=== PATIENT | male | born 1950 | race African-American/Black ===

== ENCOUNTER 2020-04-20 10:02 | Inpatient (IN) | payer MEDICARE, MEDICAID ==
[~2020-04-20] VITALS: Ht 170.2 cm; Wt 80.7 kg
[2020-04-20] MEDS ORDERED: LORAZEPAM 2MG/ML CPJ IM STA (10:50)
[2020-04-20 11:00] LABS: EOSINOPHILS % 0.7 % (0.0-5.0); HEMATOCRIT. 38.1 % (42.0-52.0); HEMOGLOBIN. 12.7 g/dL (14.0-18.0); LYMPHOCYTES % 11.1 % (20.0-50.0); MEAN CORPUSCULAR HEMOGLOBIN 32.6 pg (28.0-32.0); MEAN CORPUSCULAR VOLUME 97.7 fL (80.0-94.0); MEAN PLATELET VOLUME 8.1 fl (7.4-10.4); MONOCYTES % 6.9 % (2.0-8.0); NEUTROPHILS % 80.3 % (40.0-76.0); PLATELET 277 x1000/uL (130-400); RED CELL DISTRIBUTION WIDTH 15.2 % (11.6-14.6)
[2020-04-20] MEDS ORDERED: LEVETIRACETAM 1000MG/100ML 100 ML IV ONE (11:00)
[2020-04-20 11:09] LABS: CHLORIDE 100 mEq/L (98-107)
[2020-04-20 11:11] LABS: ETHANOL BLOOD < 10 mg/dL
[2020-04-20] MEDS ORDERED: GUAIFENESIN 200MG/10ML SUGAR FREE UDC PO PRN (13:30)
[2020-04-20] MEDS ORDERED: ENOXAPARIN 40MG/0.4ML SYR SUBCUT SCH (13:30)
[2020-04-20] MEDS ORDERED: ONDANSETRON HCL 4MG/2ML INJ IV PRN (13:30)
[2020-04-20] MEDS ORDERED: LORAZEPAM 2MG/ML CPJ IV PRN (13:30)
[2020-04-20] MEDS ORDERED: ACETAMINOPHEN 325MG TABLET PO PRN (13:30)
[2020-04-20] MEDS ORDERED: HYDROCODONE/ACETAMINOPHEN 5/325MG TABLET PO PRN (13:30)
[2020-04-20] MEDS ORDERED: DOCUSATE SODIUM 100MG CAPSULE PO PRN (13:30)
[2020-04-20] MEDS ORDERED: CLONIDINE 0.1MG TABLET PO PRN (13:30)
[2020-04-20] MEDS: AMLODIPINE 10MG TABLET PO SCH (14:00)
[2020-04-20] MEDS: ENOXAPARIN 30MG/0.3ML SYR SUBCUT SCH (14:00)
[2020-04-20 14:35] LABS: CLARITY URINE CLEAR (CLEAR); COLOR URINE YELLOW (YELLOW); KETONES URINE NEGATIVE (NEGATIVE); LEUKOCYTE ESTERASE URINE 1+ (NEGATIVE); NITRITE URINE NEGATIVE (NEGATIVE); OCCULT BLOOD URINE 1+ (NEGATIVE); PH URINE >=9.0 (4.5-8.0); PROTEIN URINE 3+ (NEGATIVE); SPECIFIC GRAVITY URINE 1.011 (1.005-1.030); UROBILINOGEN URINE 0.2 E.U./dL (0.2-1.0)
[2020-04-20 15:00] VITALS: BP 139/85
[2020-04-20 15:03] LABS: OPIATES URINE SCREEN NEGATIVE (NEGATIVE)
[2020-04-20 15:04] LABS: *AMPHETAMINES SCREEN URINE NEGATIVE (NEGATIVE); *BARBITURATES SCREEN URINE NEGATIVE (NEGATIVE); *BENZODIAZEPINES SCREEN URINE NEGATIVE (NEGATIVE); *COCAINE SCREEN URINE PRESUMTIVE POSITIVE (NEGATIVE); CANNABINOID URINE SCREEN NEGATIVE (NEGATIVE); METHADONE URINE SCREEN NEGATIVE (NEGATIVE); PHENCYCLIDINE URINE SCREEN NEGATIVE (NEGATIVE)
[2020-04-20 20:09] VITALS: BP 169/81
[2020-04-20] MEDS: LEVETIRACETAM 500MG PREMIX 100 ML IV SCH (21:22)
[2020-04-20] MEDS: DIPHENHYDRAMINE 50MG/ML VIAL IV PRN (22:15)
[2020-04-20] MEDS ORDERED: LEVETIRACETAM 500 MG in SODIUM CHLORIDE 0.9% 100 ML IV SCH (23:00)
[2020-04-20] MEDS ORDERED: HALOPERIDOL LACTATE 5MG/ML VIAL IM PRN (23:15)
[2020-04-21 00:32] VITALS: BP 178/93
[2020-04-21] MEDS: DIPHENHYDRAMINE 50MG/ML VIAL IV PRN (03:48)
[2020-04-21 04:00] VITALS: BP 186/85
[2020-04-21 06:49] LABS: CHLORIDE 104 mEq/L (98-107)
[2020-04-21 07:04] LABS: BASOPHILS % 1.5 % (0.0-2.0); EOSINOPHILS % 1.5 % (0.0-5.0); HEMATOCRIT. 32.2 % (42.0-52.0); LYMPHOCYTES % 22.8 % (20.0-50.0); MEAN CORPUSCULAR HEMOGLOBIN 32.7 pg (28.0-32.0); MEAN CORPUSCULAR VOLUME 95.7 fL (80.0-94.0); MEAN PLATELET VOLUME 8.4 fl (7.4-10.4); MONOCYTES % 13.7 % (2.0-8.0); NEUTROPHILS % 60.5 % (40.0-76.0); PLATELET 243 x1000/uL (130-400); RED BLOOD CELL COUNT 3.37 mill/uL (4.7-6.1)
[2020-04-21] MEDS: LEVETIRACETAM 500MG PREMIX 100 ML IV SCH (08:15)
[2020-04-21] MEDS: AMLODIPINE 10MG TABLET PO SCH (08:41)
[2020-04-21] MEDS ORDERED: KEPP500 MT (11:57)
[2020-04-21 12:00] VITALS: BP 126/61
[2020-04-21] MEDS: ENOXAPARIN 30MG/0.3ML SYR SUBCUT SCH (13:03)
[2020-04-21 15:09] VITALS: BP 123/68
[2020-04-21 16:00] VITALS: BP 122/70
== END 2020-04-21 17:40 | disposition home health service (06) | DRG 100 ==
LOC: ER 10:13 → 6WST 13:06 → EDBEDREQTM 13:09 → EDBEDREQ 13:09 → ENRESERV 13:41 → 6WST 04-21 05:30
PROVIDERS: ADMIT Hospitalist; ATTEND Hospitalist
PROC: 5A1D70Z Performance of Urinary Filtration, Intermittent, Less than 6 Hours Per Day (ICD-10-PCS; principal; 2020-04-20)
DX: G40.409 Other generalized epilepsy and epileptic syndromes, not intractable, without status epilepticus (principal); I50.33 Acute on chronic diastolic (congestive) heart failure; N18.6 End stage renal disease; I13.2 Hypertensive heart and chronic kidney disease with heart failure and with stage 5 chronic kidney disease, or end stage renal disease; F14.10 Cocaine abuse, uncomplicated; Z99.2 Dependence on renal dialysis; Z79.899 Other long term (current) drug therapy
CPT/HCPCS: 36415; 71045; 80053; 80305; 80320; 81003; 85025; 87077; 87186; 93005; 93970; 97162; 99285; J1200; J1630; J1650; J1953; J2060; G0480

== ENCOUNTER 2020-06-23 07:20 | Emergency (ER) | payer MEDICARE, MEDICAID ==
[~2020-06-23] VITALS: Ht 177.8 cm; Wt 90.0 kg
[~2020-06-23 07:20] MED LIST: KEPP500 MT
[2020-06-23] MEDS ORDERED: LEVETIRACETAM 1000MG PREMIX 100 ML IV ONE (07:45)
[2020-06-23 08:18] LABS: BASOPHILS % 0.7 % (0.0-2.0); CHLORIDE 96 mEq/L (98-107); EOSINOPHILS % 1.4 % (0.0-5.0); HEMATOCRIT. 38.9 % (42.0-52.0); HEMOGLOBIN. 12.6 g/dL (14.0-18.0); LYMPHOCYTES % 34.9 % (20.0-50.0); MEAN CORPUSCULAR HEMOGLOBIN 31.9 pg (28.0-32.0); MEAN CORPUSCULAR VOLUME 98.2 fL (80.0-94.0); MEAN PLATELET VOLUME 8.6 fl (7.4-10.4); MONOCYTES % 9.5 % (2.0-8.0); NEUTROPHILS % 53.5 % (40.0-76.0); PLATELET 286 x1000/uL (130-400); RED BLOOD CELL COUNT 3.96 mill/uL (4.7-6.1); RED CELL DISTRIBUTION WIDTH 15.6 % (11.6-14.6)
[2020-06-23 08:23] LABS: ETHANOL BLOOD < 10 mg/dL
[2020-06-23 10:00] VITALS: BP 142/72
== END 2020-06-23 10:53 | disposition home or self-care (01) ==
LOC: ER 07:20
DX: R56.9 Unspecified convulsions (principal); N18.6 End stage renal disease; Z99.2 Dependence on renal dialysis
CPT/HCPCS: 36415; 80053; 80320; 82962; 85025; 93005; 96365; 99284; J1953; G0480

== ENCOUNTER 2020-10-07 19:31 | Inpatient (IN) | payer MEDICARE, MEDICAID ==
[~2020-10-07] VITALS: Ht 172.7 cm; Wt 72.6 kg
[2020-10-07] MEDS ORDERED: LORAZEPAM 2MG/ML CPJ IM ONE (20:45)
[2020-10-07 22:04] LABS: HEMATOCRIT. 36.8 % (42.0-52.0); HEMOGLOBIN. 12.8 g/dL (14.0-18.0); MEAN CORPUSCULAR HEMOGLOBIN 31.5 pg (28.0-32.0); MEAN PLATELET VOLUME 8.2 fl (7.4-10.4); PLATELET 214 x1000/uL (130-400); RED BLOOD CELL COUNT 4.05 mill/uL (4.7-6.1)
[2020-10-07 22:14] LABS: CHLORIDE 96 mEq/L (98-107)
[2020-10-07 22:20] LABS: ETHANOL BLOOD < 10 mg/dL
[2020-10-07 22:33] LABS: CLARITY URINE CLOUDY (CLEAR); COLOR URINE YELLOW (YELLOW); KETONES URINE TRACE (NEGATIVE); LEUKOCYTE ESTERASE URINE 1+ (NEGATIVE); NITRITE URINE NEGATIVE (NEGATIVE); OCCULT BLOOD URINE 3+ (NEGATIVE); PH URINE 6.5 (4.5-8.0); PROTEIN URINE 3+ (NEGATIVE); SPECIFIC GRAVITY URINE 1.018 (1.005-1.030); UROBILINOGEN URINE 0.2 E.U./dL (0.2-1.0)
[2020-10-07 22:44] LABS: PLATELET ESTIMATE NORMAL
[2020-10-07 22:44] LABS: *AMPHETAMINES SCREEN URINE NEGATIVE (NEGATIVE); *BARBITURATES SCREEN URINE NEGATIVE (NEGATIVE); *BENZODIAZEPINES SCREEN URINE NEGATIVE (NEGATIVE); *COCAINE SCREEN URINE PRESUMTIVE POSITIVE (NEGATIVE); METHADONE URINE SCREEN NEGATIVE (NEGATIVE); OPIATES URINE SCREEN NEGATIVE (NEGATIVE)
[2020-10-07 22:45] LABS: CANNABINOID URINE SCREEN NEGATIVE (NEGATIVE); PHENCYCLIDINE URINE SCREEN NEGATIVE (NEGATIVE)
[2020-10-07] MEDS ORDERED: LEVETIRACETAM 500MG PREMIX 100 ML IV ONE (23:15)
[2020-10-07] MEDS ORDERED: SODIUM CHLORIDE 0.9% 500 ML IV ONE (23:15)
[2020-10-08] MEDS ORDERED: DEXTROSE 50% WATER 50ML SYRINGE IV ONE
[2020-10-08] MEDS ORDERED: MAGNESIUM/ALUMINUM HYDROXIDE/SIMETHICONE 30ML UDC PO PRN (06:30)
[2020-10-08] MEDS ORDERED: GUAIFENESIN 200MG/10ML SUGAR FREE UDC PO PRN (06:30)
[2020-10-08] MEDS ORDERED: IPRATROPIUM/ALBUTEROL 0.5-3(2.5)MG/3ML NEB HHN PRN (06:30)
[2020-10-08] MEDS ORDERED: DOCUSATE SODIUM 100MG CAPSULE PO PRN (06:30)
[2020-10-08] MEDS ORDERED: ENOXAPARIN 40MG/0.4ML SYR SUBCUT SCH (06:30)
[2020-10-08] MEDS ORDERED: LORAZEPAM 2MG/ML CPJ IV PRN (06:30)
[2020-10-08] MEDS ORDERED: DIPHENHYDRAMINE 50MG/ML VIAL IV PRN (06:30)
[2020-10-08] MEDS ORDERED: ONDANSETRON HCL 4MG/2ML INJ IV PRN (06:30)
[2020-10-08] MEDS: HYDRALAZINE 20MG/ML VIAL IV PRN ×2 (07:00→14:14)
[2020-10-08] MEDS ORDERED: BENA1TAB18 MT (10:13)
[2020-10-08] MEDS ORDERED: AMLO5TAB88 MT (10:13)
[2020-10-08] MEDS ORDERED: METO-385 MT (10:13)
[2020-10-08 10:19] VITALS: BP 120/77
[2020-10-08] MEDS: ENOXAPARIN 30MG/0.3ML SYR SUBCUT SCH (10:59)
[2020-10-08] MEDS: LEVETIRACETAM 500MG TABLET PO SCH ×2 (10:59→21:14)
[2020-10-08 12:00] VITALS: BP 170/74
[2020-10-08] MEDS: SODIUM CHLORIDE 0.9% INJ 3ML FLUSH IVF SCH ×2 (14:14→22:00)
[2020-10-08 16:00] VITALS: BP 107/65
[2020-10-08 18:49] LABS: CREATINE KINASE MB FRACTION 7.6 ng/mL (0.5-3.6)
[2020-10-08 20:00] VITALS: BP 140/69
[2020-10-08] MEDS: ACETAMINOPHEN 325MG TABLET PO PRN (21:15)
[2020-10-08 23:53] LABS: CREATINE KINASE MB FRACTION 5.5 ng/mL (0.5-3.6)
[2020-10-09 04:00] VITALS: BP 141/59
[2020-10-09] MEDS: SODIUM CHLORIDE 0.9% INJ 3ML FLUSH IVF SCH ×3 (05:29→20:46)
[2020-10-09 06:08] LABS: BASOPHILS % 0.5 % (0.0-2.0); EOSINOPHILS % 1.7 % (0.0-5.0); HEMATOCRIT. 30.9 % (42.0-52.0); HEMOGLOBIN. 10.6 g/dL (14.0-18.0); LYMPHOCYTES % 20.7 % (20.0-50.0); MEAN CORPUSCULAR HEMOGLOBIN 31.4 pg (28.0-32.0); MEAN CORPUSCULAR VOLUME 92.1 fL (80.0-94.0); MEAN PLATELET VOLUME 8.2 fl (7.4-10.4); MONOCYTES % 9.3 % (2.0-8.0); NEUTROPHILS % 67.8 % (40.0-76.0); PLATELET 203 x1000/uL (130-400); RED BLOOD CELL COUNT 3.36 mill/uL (4.7-6.1); RED CELL DISTRIBUTION WIDTH 15.5 % (11.6-14.6)
[2020-10-09 06:25] LABS: CHLORIDE 102 mEq/L (98-107)
[2020-10-09 08:00] VITALS: BP 173/85
[2020-10-09] MEDS ORDERED: POTASSIUM CHLORIDE 20MEQ TABLET SR PO SCH (08:15)
[2020-10-09] MEDS: ENOXAPARIN 30MG/0.3ML SYR SUBCUT SCH (10:36)
[2020-10-09] MEDS: LEVETIRACETAM 500MG TABLET PO SCH ×2 (10:37→20:46)
[2020-10-09 12:04] VITALS: BP 141/66
[2020-10-09 16:00] VITALS: BP 160/81
[2020-10-09 20:00] VITALS: BP 141/75
[2020-10-09] MEDS: ACETAMINOPHEN 325MG TABLET PO PRN (20:46)
[2020-10-10] VITALS: BP 186/70
[2020-10-10] MEDS: CLONIDINE 0.1MG TABLET PO PRN ×2 (01:42→08:36)
[2020-10-10 04:00] VITALS: BP 191/78
[2020-10-10] MEDS: SODIUM CHLORIDE 0.9% INJ 3ML FLUSH IVF SCH ×3 (06:12→21:31)
[2020-10-10 08:00] VITALS: BP 193/106
[2020-10-10] MEDS: ENOXAPARIN 30MG/0.3ML SYR SUBCUT SCH (08:35)
[2020-10-10] MEDS: LEVETIRACETAM 500MG TABLET PO SCH ×2 (08:35→21:31)
[2020-10-10] MEDS: LORAZEPAM 2MG/ML CPJ IV PRN ×2 (09:40→15:54)
[2020-10-10 12:00] VITALS: BP 135/69
[2020-10-10 16:00] VITALS: BP 140/62
[2020-10-10 20:00] VITALS: BP 138/64
[2020-10-11] VITALS (7 sets, daily range): BP systolic 113–168; BP diastolic 59–85
[2020-10-11] MEDS: CLONIDINE 0.1MG TABLET PO PRN (06:01)
[2020-10-11] MEDS: SODIUM CHLORIDE 0.9% INJ 3ML FLUSH IVF SCH ×3 (06:01→21:38)
[2020-10-11] MEDS: LEVETIRACETAM 500MG TABLET PO SCH ×2 (09:52→21:38)
[2020-10-11] MEDS: ENOXAPARIN 30MG/0.3ML SYR SUBCUT SCH (09:53)
[2020-10-12] VITALS: BP 145/75
[2020-10-12 04:00] VITALS: BP 171/76
[2020-10-12] MEDS: SODIUM CHLORIDE 0.9% INJ 3ML FLUSH IVF SCH ×2 (05:38→14:00)
[2020-10-12 08:00] VITALS: BP 159/69
[2020-10-12] MEDS: LEVETIRACETAM 500MG TABLET PO SCH (08:40)
[2020-10-12] MEDS: ENOXAPARIN 30MG/0.3ML SYR SUBCUT SCH (08:40)
[2020-10-12 08:54] LABS: BASOPHILS % 1.4 % (0.0-2.0); EOSINOPHILS % 2.3 % (0.0-5.0); HEMATOCRIT. 34.3 % (42.0-52.0); HEMOGLOBIN. 11.6 g/dL (14.0-18.0); LYMPHOCYTES % 37.7 % (20.0-50.0); MEAN CORPUSCULAR VOLUME 92.2 fL (80.0-94.0); MEAN PLATELET VOLUME 7.9 fl (7.4-10.4); MONOCYTES % 10.4 % (2.0-8.0); NEUTROPHILS % 48.2 % (40.0-76.0); PLATELET 233 x1000/uL (130-400); RED BLOOD CELL COUNT 3.72 mill/uL (4.7-6.1); RED CELL DISTRIBUTION WIDTH 15.3 % (11.6-14.6)
[2020-10-12 12:00] VITALS: BP 147/62
[2020-10-12 13:56] VITALS: BP 147/62
== END 2020-10-12 17:36 | disposition home or self-care (01) | DRG 100 ==
LOC: ER 19:31 → 7WST 10-08 01:58 → ENRESERV 10-08 08:28 → 6WST 10-09 00:58
PROVIDERS: ADMIT Internal Medicine; ATTEND Internal Medicine
PROC: 5A1D70Z Performance of Urinary Filtration, Intermittent, Less than 6 Hours Per Day (ICD-10-PCS; 2020-10-08)
PROC: 4A10X4Z Monitoring of Central Nervous Electrical Activity, External Approach (ICD-10-PCS; principal; 2020-10-11)
PROC: 5A1D70Z Performance of Urinary Filtration, Intermittent, Less than 6 Hours Per Day (ICD-10-PCS; 2020-10-11)
DX: G40.909 Epilepsy, unspecified, not intractable, without status epilepticus (principal); N18.6 End stage renal disease; E46 Unspecified protein-calorie malnutrition; E87.1 Hypo-osmolality and hyponatremia; I12.0 Hypertensive chronic kidney disease with stage 5 chronic kidney disease or end stage renal disease; N39.0 Urinary tract infection, site not specified; D63.8 Anemia in other chronic diseases classified elsewhere; E87.6 Hypokalemia; F10.10 Alcohol abuse, uncomplicated; F14.10 Cocaine abuse, uncomplicated; F17.210 Nicotine dependence, cigarettes, uncomplicated; Z20.822 Contact with and (suspected) exposure to COVID-19; T42.6X6A Underdosing of other antiepileptic and sedative-hypnotic drugs, initial encounter; Y92.89 Other specified places as the place of occurrence of the external cause; Z99.2 Dependence on renal dialysis; Z68.24 Body mass index [BMI] 24.0-24.9, adult
CPT/HCPCS: 36415; 80048; 80053; 80305; 80320; 81003; 82550; 82553; 82962; 84443; 84484; 85025; 87077; 87186; 93005; 95816; 99285; C1893; J0360; J1650; J1953; J2060; J7040; U0003; G0480

== ENCOUNTER 2020-11-12 20:09 | Inpatient (IN) | payer MEDICARE, MEDICAID ==
[~2020-11-12] VITALS: Ht 180.3 cm; Wt 83.7 kg
[~2020-11-12 20:09] MED LIST changes: +AMLO5TAB88 MT; +BENA1TAB18 MT; +METO-385 MT
[2020-11-12] MEDS ORDERED: LEVETIRACETAM 500MG PREMIX 100 ML IV ONE (21:00)
[2020-11-12] MEDS ORDERED: LORAZEPAM 2MG/ML CPJ IV ONE (21:00)
[2020-11-12 22:20] LABS: HEMATOCRIT. 32.4 % (42.0-52.0); HEMOGLOBIN. 10.8 g/dL (14.0-18.0); MEAN CORPUSCULAR HEMOGLOBIN 31.7 pg (28.0-32.0); MEAN CORPUSCULAR VOLUME 94.8 fL (80.0-94.0); MEAN PLATELET VOLUME 8.7 fl (7.4-10.4); PLATELET 245 x1000/uL (130-400); RED BLOOD CELL COUNT 3.41 mill/uL (4.7-6.1); RED CELL DISTRIBUTION WIDTH 15.4 % (11.6-14.6)
[2020-11-12 22:29] LABS: CHLORIDE 102 mEq/L (98-107)
[2020-11-12 22:33] LABS: ETHANOL BLOOD < 10 mg/dL
[2020-11-12] MEDS ORDERED: DEXT 5%/0.9% NACL 1,000 ML IV ONE (22:45)
[2020-11-12 22:46] LABS: PLATELET ESTIMATE NORMAL
[2020-11-13] VITALS (13 sets, daily range): BP systolic 109–154; BP diastolic 59–84
[2020-11-13] MEDS ORDERED: LORAZEPAM 2MG/ML CPJ IV PRN (00:30)
[2020-11-13] MEDS ORDERED: DIPHENHYDRAMINE 50MG/ML VIAL IV PRN (00:30)
[2020-11-13] MEDS ORDERED: ACETAMINOPHEN 325MG TABLET PO PRN ×2 (00:30)
[2020-11-13] MEDS ORDERED: CLONIDINE 0.1MG TABLET PO PRN (00:30)
[2020-11-13] MEDS ORDERED: LEVETIRACETAM 500 MG in SODIUM CHLORIDE 0.9% 100 ML IV SCH (00:30)
[2020-11-13] MEDS ORDERED: ONDANSETRON HCL 4MG/2ML INJ IV PRN (00:30)
[2020-11-13] MEDS ORDERED: ZOLPIDEM TARTRATE 5MG TABLET PO PRN (00:30)
[2020-11-13] MEDS: SODIUM CHLORIDE 0.9% INJ 3ML FLUSH IVF SCH ×3 (06:17→21:19)
[2020-11-13] MEDS: LEVETIRACETAM 500MG PREMIX 100 ML IV SCH ×2 (09:30→21:47)
[2020-11-14] VITALS (9 sets, daily range): BP systolic 104–163; BP diastolic 52–79
[2020-11-14] MEDS: SODIUM CHLORIDE 0.9% INJ 3ML FLUSH IVF SCH ×2 (05:12→13:27)
[2020-11-14 06:32] LABS: BASOPHILS % 1.4 % (0.0-2.0); EOSINOPHILS % 5.9 % (0.0-5.0); HEMOGLOBIN. 9.8 g/dL (14.0-18.0); MEAN CORPUSCULAR HEMOGLOBIN 30.4 pg (28.0-32.0); MEAN CORPUSCULAR VOLUME 92.7 fL (80.0-94.0); MEAN PLATELET VOLUME 8.6 fl (7.4-10.4); MONOCYTES % 10.7 % (2.0-8.0); PLATELET 212 x1000/uL (130-400); RED BLOOD CELL COUNT 3.23 mill/uL (4.7-6.1); RED CELL DISTRIBUTION WIDTH 15.8 % (11.6-14.6)
[2020-11-14] MEDS: LEVETIRACETAM 500MG PREMIX 100 ML IV SCH (08:44)
== END 2020-11-14 13:43 | disposition home or self-care (01) | DRG 100 ==
LOC: ER 20:09 → 3WST 22:52 → ENRESERV 23:14
PROVIDERS: ADMIT Internal Medicine; ATTEND Internal Medicine
DX: G40.409 Other generalized epilepsy and epileptic syndromes, not intractable, without status epilepticus (principal); N18.6 End stage renal disease; I12.0 Hypertensive chronic kidney disease with stage 5 chronic kidney disease or end stage renal disease; D63.1 Anemia in chronic kidney disease; F14.90 Cocaine use, unspecified, uncomplicated; E11.22 Type 2 diabetes mellitus with diabetic chronic kidney disease; T42.6X6A Underdosing of other antiepileptic and sedative-hypnotic drugs, initial encounter; Y92.89 Other specified places as the place of occurrence of the external cause; Z82.49 Family history of ischemic heart disease and other diseases of the circulatory system; Z99.2 Dependence on renal dialysis; Z71.51 Drug abuse counseling and surveillance of drug abuser; Z72.89 Other problems related to lifestyle; Z71.41 Alcohol abuse counseling and surveillance of alcoholic; Z91.19 Patient's noncompliance with other medical treatment and regimen
CPT/HCPCS: 36415; 71045; 80048; 80053; 80320; 82962; 85025; 93005; 99285; J1953; J2060; J7042; G0480

== ENCOUNTER 2022-05-12 08:30 | Inpatient (IN) | payer MEDICARE, MEDICAID ==
[~2022-05-12] VITALS: Ht 170.2 cm; Wt 72.1 kg
[2022-05-12 09:09] LABS: BASOPHILS % 1.4 % (0.0-2.0); EOSINOPHILS % 3.4 % (0.0-5.0); HEMATOCRIT. 36.5 % (42.0-52.0); HEMOGLOBIN. 12.2 g/dL (14.0-18.0); LYMPHOCYTES % 32.8 % (20.0-50.0); MEAN CORPUSCULAR HEMOGLOBIN 32.7 pg (28.0-32.0); MEAN CORPUSCULAR VOLUME 97.5 fL (80.0-94.0); MEAN PLATELET VOLUME 8.8 fl (7.4-10.4); MONOCYTES % 13.7 % (2.0-8.0); NEUTROPHILS % 48.7 % (40.0-76.0); PLATELET 192 x1000/uL (130-400); RED BLOOD CELL COUNT 3.74 mill/uL (4.7-6.1); RED CELL DISTRIBUTION WIDTH 15.6 % (11.6-14.6)
[2022-05-12 09:15] LABS: CHLORIDE 97 mEq/L (98-107)
[2022-05-12] MEDS ORDERED: ONDANSETRON HCL 4MG/2ML INJ IV STA (09:23)
[2022-05-12] MEDS ORDERED: MORPHINE SULFATE 4 MG/ML CPJ (NOT FOR IM USE) IV STA (09:23)
[2022-05-12] MEDS ORDERED: ASPIRIN 81MG TABLET PO ONE (11:15)
[2022-05-12 16:30] VITALS: BP 186/81
[2022-05-12] MEDS ORDERED: BROM3DRO EACHEYE (17:13)
[2022-05-12] MEDS ORDERED: ASPI-986 PO (17:16)
[2022-05-12] MEDS ORDERED: PIOG45TA64 PO (17:16)
[2022-05-12] MEDS ORDERED: HYDRALAZINE 20MG/ML VIAL IV PRN (19:15)
[2022-05-12] MEDS ORDERED: MAGNESIUM/ALUMINUM HYDROXIDE/SIMETHICONE 30ML UDC PO PRN (19:15)
[2022-05-12] MEDS ORDERED: ACETAMINOPHEN 325MG TABLET PO PRN ×2 (19:15)
[2022-05-12] MEDS ORDERED: ONDANSETRON HCL 4MG/2ML INJ IV PRN (19:15)
[2022-05-12] MEDS ORDERED: DIPHENHYDRAMINE 50MG/ML VIAL IV PRN (19:15)
[2022-05-12] MEDS ORDERED: LORAZEPAM 2MG/ML CPJ IV PRN (19:15)
[2022-05-12] MEDS ORDERED: ZOLPIDEM TARTRATE 5MG TABLET PO PRN (19:15)
[2022-05-12 19:52] VITALS: BP 189/78
[2022-05-12] MEDS: LEVETIRACETAM 500MG TABLET PO SCH (20:07)
[2022-05-12] MEDS: AMLODIPINE 5MG TABLET PO SCH (20:07)
[2022-05-12] MEDS: FAMOTIDINE 20MG TABLET PO SCH (20:07)
[2022-05-12 21:26] VITALS: BP_SYST 155; BP_DIAS 57; BP_DIAS 87
[2022-05-12] MEDS: HYDRALAZINE HCL 50MG TABLET PO SCH (21:28)
[2022-05-12] MEDS: SODIUM CHLORIDE 0.9% INJ 3ML FLUSH IVF SCH (22:00)
[2022-05-13] VITALS: BP 140/58
[2022-05-13 03:14] VITALS: BP 159/71
[2022-05-13] MEDS: HYDRALAZINE HCL 50MG TABLET PO SCH ×3 (05:30→21:03)
[2022-05-13] MEDS: SODIUM CHLORIDE 0.9% INJ 3ML FLUSH IVF SCH ×3 (06:00→21:07)
[2022-05-13 08:10] VITALS: BP 136/67
[2022-05-13] MEDS: LEVETIRACETAM 500MG TABLET PO SCH ×2 (08:21→21:04)
[2022-05-13] MEDS: AMLODIPINE 5MG TABLET PO SCH ×2 (08:22→21:04)
[2022-05-13 11:35] VITALS: BP 128/61
[2022-05-13 15:51] VITALS: BP 109/70
[2022-05-13 20:00] VITALS: BP 160/70
[2022-05-13] MEDS: FAMOTIDINE 20MG TABLET PO SCH (21:04)
[2022-05-13] MEDS: ATORVASTATIN CALCIUM 20MG TABLET PO SCH (21:04)
[2022-05-14] VITALS (7 sets, daily range): BP systolic 81–179; BP diastolic 50–80
[2022-05-14] MEDS: HYDRALAZINE HCL 50MG TABLET PO SCH ×3 (05:34→21:43)
[2022-05-14] MEDS: SODIUM CHLORIDE 0.9% INJ 3ML FLUSH IVF SCH ×3 (05:35→20:49)
[2022-05-14] MEDS: LEVETIRACETAM 500MG TABLET PO SCH ×2 (08:45→20:48)
[2022-05-14] MEDS: AMLODIPINE 5MG TABLET PO SCH ×2 (08:45→20:49)
[2022-05-14] MEDS ORDERED: REGADENOSON 0.4 MG/5 ML IV NR (10:00)
[2022-05-14] MEDS: CLONIDINE 0.2MG TABLET PO SCH ×2 (13:07→21:43)
[2022-05-14] MEDS ORDERED: PNEUMOCOCCAL 23-VAL P-SAC VAC 0.5 ML IM ONE (14:00)
[2022-05-14] MEDS: FAMOTIDINE 20MG TABLET PO SCH (20:48)
[2022-05-14] MEDS: ATORVASTATIN CALCIUM 20MG TABLET PO SCH (20:48)
[2022-05-15] VITALS: BP 110/55
[2022-05-15 04:00] VITALS: BP 123/67
[2022-05-15] MEDS: CLONIDINE 0.2MG TABLET PO SCH ×2 (05:23→14:00)
[2022-05-15] MEDS: HYDRALAZINE HCL 50MG TABLET PO SCH ×2 (05:23→14:52)
[2022-05-15] MEDS: SODIUM CHLORIDE 0.9% INJ 3ML FLUSH IVF SCH ×2 (05:49→14:52)
[2022-05-15 08:00] VITALS: BP 126/65
[2022-05-15] MEDS ORDERED: REGADENOSON 0.4 MG/5 ML IV ONE (08:53)
[2022-05-15 12:00] VITALS: BP 134/64
[2022-05-15] MEDS: LEVETIRACETAM 500MG TABLET PO SCH (12:05)
[2022-05-15] MEDS: AMLODIPINE 5MG TABLET PO SCH (12:05)
[2022-05-16 08:08] LABS: HBSAG SCREEN Negative (Negative)
== END 2022-05-15 15:40 | disposition left against medical advice (07) | DRG 205 ==
LOC: ER 08:54 → 8WST 11:14
PROVIDERS: ADMIT Internal Medicine; ATTEND Internal Medicine
PROC: 5A1D70Z Performance of Urinary Filtration, Intermittent, Less than 6 Hours Per Day (ICD-10-PCS; principal; 2022-05-13)
PROC: 4A02XM4 Measurement of Cardiac Total Activity, External Approach (ICD-10-PCS; 2022-05-15)
PROC: 3E033HZ Introduction of Radioactive Substance into Peripheral Vein, Percutaneous Approach (ICD-10-PCS; 2022-05-15)
DX: M94.0 Chondrocostal junction syndrome [Tietze] (principal); N18.6 End stage renal disease; I12.0 Hypertensive chronic kidney disease with stage 5 chronic kidney disease or end stage renal disease; E87.6 Hypokalemia; E11.22 Type 2 diabetes mellitus with diabetic chronic kidney disease; E78.5 Hyperlipidemia, unspecified; F17.200 Nicotine dependence, unspecified, uncomplicated; Z20.822 Contact with and (suspected) exposure to COVID-19; G40.909 Epilepsy, unspecified, not intractable, without status epilepticus; Z99.2 Dependence on renal dialysis; Z53.29 Procedure and treatment not carried out because of patient's decision for other reasons; Z82.49 Family history of ischemic heart disease and other diseases of the circulatory system; Z98.890 Other specified postprocedural states
CPT/HCPCS: 36415; 71045; 78452; 80053; 83880; 84484; 85025; 87340; 87426; 90732; 93005; 93017; 93306; 93970; 99285; A9500; A9537; J2270; J2405; J2785

== ENCOUNTER 2022-08-21 15:49 | Inpatient (IN) | payer MEDICARE, MEDICAID ==
[~2022-08-21] VITALS: Ht 182.9 cm; Wt 78.9 kg
[~2022-08-21 15:49] MED LIST changes: +ASPI-986 PO; +BROM3DRO EACHEYE; +PIOG45TA64 PO
[2022-08-21] MEDS ORDERED: CLONIDINE (15:51)
[2022-08-21] MEDS ORDERED: ASPIRIN 81MG TABLET PO ONE (16:30)
[2022-08-21] MEDS ORDERED: NITROGLYCERIN 0.4MG TABLET SL SL PRN ×2 (16:30→22:00)
[2022-08-21 17:18] LABS: EOSINOPHILS % 2.6 % (0.0-5.0); HEMATOCRIT. 28.1 % (42.0-52.0); HEMOGLOBIN. 9.2 g/dL (14.0-18.0); LYMPHOCYTES % 20.3 % (20.0-50.0); MEAN CORPUSCULAR HEMOGLOBIN 32.1 pg (28.0-32.0); MEAN CORPUSCULAR VOLUME 98.2 fL (80.0-94.0); MONOCYTES % 9.1 % (2.0-8.0); PLATELET 268 x1000/uL (130-400); RED BLOOD CELL COUNT 2.86 mill/uL (4.7-6.1); RED CELL DISTRIBUTION WIDTH 16.9 % (11.6-14.6)
[2022-08-21 17:29] LABS: CHLORIDE 100 mEq/L (98-107)
[2022-08-21] MEDS ORDERED: ACETAMINOPHEN 325MG TABLET PO ONE (18:30)
[2022-08-21] MEDS ORDERED: ZOLPIDEM TARTRATE 5MG TABLET PO PRN (22:00)
[2022-08-21] MEDS ORDERED: ONDANSETRON HCL 4MG/2ML INJ IV PRN (22:00)
[2022-08-21] MEDS ORDERED: IPRATROPIUM/ALBUTEROL 0.5-3(2.5)MG/3ML NEB HHN PRN (22:00)
[2022-08-21] MEDS ORDERED: MAGNESIUM/ALUMINUM HYDROXIDE/SIMETHICONE 30ML UDC PO PRN (22:00)
[2022-08-21] MEDS ORDERED: TRAMADOL 50MG TABLET PO PRN (22:00)
[2022-08-21] MEDS ORDERED: DOCUSATE SODIUM 100MG CAPSULE PO PRN (22:00)
[2022-08-21] MEDS ORDERED: ACETAMINOPHEN 325MG TABLET PO PRN ×2 (22:00)
[2022-08-21] MEDS ORDERED: GUAIFENESIN 200MG/10ML SUGAR FREE UDC PO PRN (22:00)
[2022-08-21] MEDS ORDERED: IPRATROPIUM BROMIDE (0.02%) 0.5MG/2.5ML NEB HHN PRN (22:15)
[2022-08-21] MEDS ORDERED: ALBUTEROL (0.083%) 2.5MG/3ML NEB HHN PRN (22:15)
[2022-08-22 04:25] VITALS: BP 187/87
[2022-08-22] MEDS: CLONIDINE 0.1MG TABLET PO PRN (04:45)
[2022-08-22 08:00] VITALS: BP 134/53
[2022-08-22] MEDS: SEVELAMER CARBONATE 800 MG TABLET PO SCH ×3 (08:42→16:17)
[2022-08-22] MEDS: AMLODIPINE 10MG TABLET PO SCH (08:44)
[2022-08-22] MEDS: FAMOTIDINE 20MG TABLET PO SCH (08:44)
[2022-08-22] MEDS: ENOXAPARIN 30MG/0.3ML SYR SUBCUT SCH (08:45)
[2022-08-22] MEDS ORDERED: ASPIRIN 325MG EC TABLET PO SCH (09:00)
[2022-08-22] MEDS ORDERED: NALOXONE HCL 0.4MG/ML VIAL IV PRN (09:30)
[2022-08-22] MEDS ORDERED: DEXTROSE 50% WATER 50ML SYRINGE IV PRN (09:30)
[2022-08-22 10:49] LABS: BASOPHILS % 2.2 % (0.0-2.0); EOSINOPHILS % 2.4 % (0.0-5.0); HEMATOCRIT. 27.6 % (42.0-52.0); HEMOGLOBIN. 9.2 g/dL (14.0-18.0); MEAN CORPUSCULAR HEMOGLOBIN 32.3 pg (28.0-32.0); MEAN PLATELET VOLUME 8.4 fl (7.4-10.4); MONOCYTES % 7.2 % (2.0-8.0); NEUTROPHILS % 68.2 % (40.0-76.0); PLATELET 255 x1000/uL (130-400); RED BLOOD CELL COUNT 2.85 mill/uL (4.7-6.1); RED CELL DISTRIBUTION WIDTH 16.4 % (11.6-14.6)
[2022-08-22] MEDS: LEVETIRACETAM 500MG/5ML CUP PO SCH ×2 (10:49→22:03)
[2022-08-22] MEDS: BLOOD SUGAR DIAGNOSTIC STRIP TEST SCH ×3 (10:52→21:00)
[2022-08-22] MEDS: NICOTINE 7MG PATCH TD SCH (10:56)
[2022-08-22 11:05] LABS: CHLORIDE 100 mEq/L (98-107)
[2022-08-22 11:22] LABS: CREATINE KINASE 622 IU/L (39-308); CREATINE KINASE MB FRACTION 2.6 ng/mL (0.5-3.6); HDL CHOLESTEROL 87 mg/dL (40-59); LDL CHOLESTEROL 55 mg/dL (5-100); PHOSPHORUS 5.6 mg/dL (2.5-4.9)
[2022-08-22 12:00] VITALS: BP_SYST 157; BP_SYST 187; BP_DIAS 79
[2022-08-22] MEDS: INSULIN LISPRO 100 UNITS/ML SUBCUT SCH ×3 (12:10→21:00)
[2022-08-22 16:00] VITALS: BP 146/66
[2022-08-22 16:25] LABS: CREATINE KINASE MB FRACTION 3.6 ng/mL (0.5-3.6)
[2022-08-22 20:00] VITALS: BP 161/64
[2022-08-23] VITALS (15 sets, daily range): BP systolic 125–174; BP diastolic 61–79
[2022-08-23] MEDS: BLOOD SUGAR DIAGNOSTIC STRIP TEST SCH ×3 (06:40→16:49)
[2022-08-23 07:28] LABS: BASOPHILS % 1.6 % (0.0-2.0); EOSINOPHILS % 2.7 % (0.0-5.0); HEMATOCRIT. 24.7 % (42.0-52.0); HEMOGLOBIN. 8.3 g/dL (14.0-18.0); MEAN CORPUSCULAR HEMOGLOBIN 32.1 pg (28.0-32.0); MEAN PLATELET VOLUME 8.6 fl (7.4-10.4); NEUTROPHILS % 65.7 % (40.0-76.0); PLATELET 228 x1000/uL (130-400); RED CELL DISTRIBUTION WIDTH 16.3 % (11.6-14.6)
[2022-08-23] MEDS: INSULIN LISPRO 100 UNITS/ML SUBCUT SCH ×3 (08:42→16:50)
[2022-08-23] MEDS: SEVELAMER CARBONATE 800 MG TABLET PO SCH ×3 (08:42→17:15)
[2022-08-23] MEDS: AMLODIPINE 10MG TABLET PO SCH (08:43)
[2022-08-23] MEDS: ENOXAPARIN 30MG/0.3ML SYR SUBCUT SCH (08:43)
[2022-08-23] MEDS: FAMOTIDINE 20MG TABLET PO SCH (08:43)
[2022-08-23] MEDS: LEVETIRACETAM 500MG/5ML CUP PO SCH (08:43)
[2022-08-23] MEDS ORDERED: ASPIRIN 81MG TABLET PO SCH (09:00)
[2022-08-23] MEDS: NICOTINE 7MG PATCH TD SCH (09:10)
[2022-08-23 09:47] LABS: T4 FREE 1.04 ng/dL (0.76-1.46)
[2022-08-23 12:57] LABS: HEPATITIS B SURFACE ANTIGEN NEGATIVE
[2022-08-23] MEDS ORDERED: IODIXANOL 320MG/ML 100 ML BOTTLE IV ONE (15:09)
[2022-08-23] MEDS ORDERED: LIDOCAINE HCL 1% 20ML VIAL (Pyxis) INJ ONE (15:09)
[2022-08-23] MEDS ORDERED: HEPARIN 1000 UNITS/ML 10ML ONE (15:09)
[2022-08-23] MEDS ORDERED: DIPHENHYDRAMINE 50MG/ML VIAL ONE (15:12)
[2022-08-23] MEDS ORDERED: VERAPAMIL HCL 2.5 MG/1 ML 2ML VIAL IV ONE (15:12)
[2022-08-23] MEDS: CLONIDINE 0.1MG TABLET PO PRN (17:15)
== END 2022-08-23 22:21 | disposition home or self-care (01) | DRG 280 ==
LOC: ER 16:15 → EDBEDREQ 21:49 → EDBEDREQTM 21:49 → MICUSO 23:25 → 7EST 08-22 03:54
PROVIDERS: ADMIT Internal Medicine; ATTEND Internal Medicine
PROC: 5A1D70Z Performance of Urinary Filtration, Intermittent, Less than 6 Hours Per Day (ICD-10-PCS; principal; 2022-08-23)
DX: I13.2 Hypertensive heart and chronic kidney disease with heart failure and with stage 5 chronic kidney disease, or end stage renal disease (principal); I21.A1 Myocardial infarction type 2; I50.33 Acute on chronic diastolic (congestive) heart failure; N18.6 End stage renal disease; E44.1 Mild protein-calorie malnutrition; M94.0 Chondrocostal junction syndrome [Tietze]; E11.22 Type 2 diabetes mellitus with diabetic chronic kidney disease; E87.6 Hypokalemia; Z20.822 Contact with and (suspected) exposure to COVID-19; D63.1 Anemia in chronic kidney disease; D72.819 Decreased white blood cell count, unspecified; E78.5 Hyperlipidemia, unspecified; G40.909 Epilepsy, unspecified, not intractable, without status epilepticus; I45.10 Unspecified right bundle-branch block; Z53.20 Procedure and treatment not carried out because of patient's decision for unspecified reasons; F17.210 Nicotine dependence, cigarettes, uncomplicated; Z91.199 Patient's noncompliance with other medical treatment and regimen due to unspecified reason; Z85.038 Personal history of other malignant neoplasm of large intestine; Z86.73 Personal history of transient ischemic attack (TIA), and cerebral infarction without residual deficits; Z99.2 Dependence on renal dialysis; Z79.899 Other long term (current) drug therapy; Z68.23 Body mass index [BMI] 23.0-23.9, adult; Z79.82 Long term (current) use of aspirin; Z82.49 Family history of ischemic heart disease and other diseases of the circulatory system
CPT/HCPCS: 36415; 71045; 80048; 80053; 80061; 82550; 82553; 82962; 83036; 83735; 83880; 84100; 84439; 84443; 84484; 85025; 85379; 86705; 86709; 86803; 87340; 87426; 90935; 93005; 93970; 99285; J1200; J1644; J1650; J3490; Q9967